=== PATIENT | male | born 1980 | race Hispanic/Latino ===

== ENCOUNTER 2023-01-04 16:36 | Emergency (ER) | payer OTHER ==
[~2023-01-04] VITALS: Ht 172.7 cm; Wt 79.0 kg
[~2023-01-04 16:36] MED LIST: FLONASE NASAL50 MCG
[2023-01-04 16:44] VITALS: BP 110/77
[2023-01-04 16:45] VITALS: BP 113/81
[2023-01-04 17:11] LABS: URINE BLOOD DIPSTICK Negative (NEGATIVE); URINE COLOR Yellow; URINE GLUCOSE - DIPSTICK Negative (NEGATIVE); URINE KETONE 15 mg/dL (NEGATIVE); URINE LEUK ESTERASE Negative (NEGATIVE); URINE NITRITE - DIPSTICK Negative (Negative); URINE PROTEIN - DIPSTICK >=300 mg/dL (NEG-TRACE); URINE SPECIFIC GRAVITY 1.025; URINE UROBILINOGEN - DIPSTICK >=8.0 E.U./dL (0.2)
[2023-01-04 17:12] LABS: URINE MUCUS RARE hpf (NONE-FEW)
[2023-01-04] MEDS ORDERED: ZOFRAN4 MG/TAB PO (17:29)
[2023-01-04] MEDS ORDERED: DOXY-CAPS100 MG PO (17:29)
[2023-01-04 17:39] VITALS: BP 113/81
== END 2023-01-04 18:02 | disposition home or self-care (01) | DRG 153 ==
LOC: ED 16:36
PROVIDERS: Family Medicine
DX: J06.9 Acute upper respiratory infection, unspecified (principal); Z20.822 Contact with and (suspected) exposure to COVID-19